=== PATIENT | female | born 1970 | race Two or more races ===

== ENCOUNTER → 2024-07-30 | Outpatient (CLI) | payer MEDICAID, SELFPAY ==
[2024-07-29 13:57] LABS: Basophils % (Auto) 0 % (0-2.5); Eosinophils # (Auto) 0.4 Thou/mm3 (0.0-0.5); Eosinophils % (Auto) 4 % (0-10); Hematocrit 34.2 % (36.0-46.0); Hemoglobin 11.2 g/dL (12.0-16.0); Immature Granulocytes % (Auto) 0 % (0-0); Immature Granulocytes Auto 0.03 Thou/mm3 (0.00-0.00); Lymphocytes # (Auto) 2.6 Thou/mm3 (1.0-4.8); Lymphocytes % (Auto) 33 % (10-50); Mean Corpuscular HGB Conc 32.7 g/dl (31.0-37.0); Mean Corpuscular Hemoglobin 29.5 pg (25.0-35.0); Mean Corpuscular Volume 90 fL (80-100); Monocytes # (Auto) 0.5 Thou/mm3 (0.0-0.8); Monocytes % (Auto) 6 % (0-12); Neutrophils # (Auto) 4.4 Thou/mm3 (1.8-7.7); Neutrophils % (Auto) 56 % (37-80); Nucleated Red Blood Cell % 0 /100 WBC (0); Platelet Count 257 Thou/mm3 (140-440); White Blood Count 7.9 Thou/mm3 (3.6-11.0)
[2024-07-29 14:16] LABS: Partial Thromboplastin Time 27.9 Seconds (22.0-36.0); Prothrombin Time 11.1 Seconds (9.0-12.2)
--- NOTE | 2024-07-30 09:30 | XR_ITS ---
Examination: Breast ultrasound limited, right Limited Date and time of exam: July 30, 2024 0948 hours INDICATIONS: Right breast sonogram April 29, 2024 mass in the right breast post trauma Technique: Real time smith scale ultrasonographic imaging of the breast , retroarelar and axillary region. Findings: Current circumscribed oval mass consistent with resolving hematoma in the 2:00 position right breast Impression: BI-RADS Category 3: Probably benign findings One additional 6 month right breast sonogram follow-up is needed to document stability of benign resolving hematoma right breast
== END | disposition home or self-care (01) ==
PROVIDERS: Radiology Diagnostic Radiology; PCP Nurse Practitioner Family; Referring Provider Nurse Practitioner Family; Visit Provider Nurse Practitioner Family
DX: N60.01 Solitary cyst of right breast (principal); S20.01XA Contusion of right breast, initial encounter; X58.XXXA Exposure to other specified factors, initial encounter; Z53.8 Procedure and treatment not carried out for other reasons; Z01.812 Encounter for preprocedural laboratory examination
CPT/HCPCS: 36415; 76642; 85025; 85610; 85730

== ENCOUNTER → 2024-09-16 | Outpatient (CLI) | payer MEDICAID, SELFPAY ==
--- NOTE | 2024-09-16 13:30 | XR_ITS ---
Examination: Pelvic ultrasound, transabdominal, complete Technique: Transabdominal ultrasound of the pelvis performed using grayscale imaging Date and time of exam: September 16, 2024 1404 hours INDICATIONS: Pelvic pain beginning 6 weeks ago. FINDINGS: Uterus 8.4 cm endometrial stripe 0.8 cm No uterine mass Ovaries obscured by bowel gas IMPRESSION: Limited study No uterine mass
== END | disposition home or self-care (01) ==
PROVIDERS: PCP Nurse Practitioner Family; Referring Provider Nurse Practitioner Family; Visit Provider Nurse Practitioner Family
DX: N73.3 Female acute pelvic peritonitis (principal)
CPT/HCPCS: 76856